=== PATIENT | male | born 1990 | race African-American/Black ===

== ENCOUNTER 2023-07-16 12:08 | Emergency (ER) | payer MEDICAID, OTHER ==
[~2023-07-16] VITALS: Ht 170.2 cm; Wt 81.6 kg
[2023-07-16 13:08] VITALS: BP 106/83; TEMP 98.7; O2SAT 100
[2023-07-16] MEDS ORDERED: FAMOTIDINE (20 MG) 20 MG TABLET ONE ×2 (15:08→15:21)
[2023-07-16] MEDS ORDERED: METOCLOPRAMIDE HCL 10 MG/2 ML VIAL ONE ×2 (15:08→15:21)
[2023-07-16] MEDS ORDERED: PANTOPRAZOLE 40 MG TABLET.DR PO ONE ×2 (15:09→15:22)
[2023-07-16] MEDS ORDERED: METO-295 PO (15:11)
[2023-07-16] MEDS ORDERED: PANT20TA2 PO (15:11)
[2023-07-16] MEDS: PANTOPRAZOLE 40 MG TABLET.DR PO ONE (15:15)
[2023-07-16] MEDS: METOCLOPRAMIDE HCL 10 MG/2 ML VIAL IM SCH (15:15)
[2023-07-16] MEDS: FAMOTIDINE (20 MG) 20 MG TABLET PO ONE (15:40)
== END 2023-07-16 15:42 | disposition home or self-care (01) ==
LOC: ER 12:08
DX: R06.6 Hiccough (principal)
CPT/HCPCS: 99283; 96372; J2765 ×2